=== PATIENT | male | born 1990 | race Caucasian/White ===

== ENCOUNTER 2021-08-01 22:02 | Emergency (ER) | payer SELFPAY ==
[~2021-08-01] VITALS: Ht 185.4 cm; Wt 79.4 kg
[~2021-08-01 22:02] MED LIST: MOTRIN800 MG PO
== END 2021-08-02 00:04 | disposition home or self-care (01) ==
LOC: ED 22:02
DX: S02.5XXA Fracture of tooth (traumatic), initial encounter for closed fracture (principal); Y08.89XA Assault by other specified means, initial encounter; Y93.89 Activity, other specified; Y92.89 Other specified places as the place of occurrence of the external cause; Y99.8 Other external cause status

== ENCOUNTER 2024-11-25 17:57 | Emergency (ER) | payer OTHER ==
[~2024-11-25] VITALS: Ht 185.4 cm; Wt 68.2 kg
[2024-11-25] MEDS ORDERED: Ondansetron Hydrochloride 4 MG/2 ML VIAL IV ONE (18:15)
[2024-11-25] MEDS ORDERED: Tdap Vaccine 0.5 ML SYR (Adult Vaccine) IM ONE (18:15)
[2024-11-25] MEDS ORDERED: MORPHINE Sulfate 2 MG/ML SYR IV ONE (18:15)
[2024-11-25] MEDS ORDERED: HYDROmorphone Hydrochloride 1 MG/ML SYR IV ONE (18:40)
== END 2024-11-25 19:28 | disposition short-term general hospital (02) ==
LOC: ED 17:57
DX: T20.26XA Burn of second degree of forehead and cheek, initial encounter (principal); T20.22XA Burn of second degree of lip(s), initial encounter; T20.27XA Burn of second degree of neck, initial encounter; T20.211A Burn of second degree of right ear [any part, except ear drum], initial encounter; T31.0 Burns involving less than 10% of body surface; X04.XXXA Exposure to ignition of highly flammable material, initial encounter; Y93.89 Activity, other specified; Y92.89 Other specified places as the place of occurrence of the external cause; Y99.8 Other external cause status

== ENCOUNTER 2025-04-28 09:05 | Emergency (ER) | payer OTHER ==
[~2025-04-28] VITALS: Ht 185.4 cm; Wt 68.0 kg
[2025-04-28] MEDS ORDERED: MELOXICAM15 MG PO (09:19)
[2025-04-28] MEDS ORDERED: AMOX-CLAV 875-1 EACH PO (09:19)
[2025-04-28] MEDS ORDERED: Amoxicillin/Clavulanate Pota 875 MG TAB PO ONE (09:20)
[2025-04-28] MEDS ORDERED: Acetaminophen/Oxycodone 5 MG/325 MG TABLET PO ONE (09:20)
== END 2025-04-28 09:18 | disposition home or self-care (01) ==
LOC: ED 09:05
DX: K02.9 Dental caries, unspecified (principal); K04.7 Periapical abscess without sinus; F17.290 Nicotine dependence, other tobacco product, uncomplicated